=== PATIENT | male | born 1995 ===

== ENCOUNTER 2021-10-14 07:53 | Outpatient (CLI) | payer OTHER, SELFPAY ==
--- NOTE | 2021-10-21 12:50 | WPDHOMESLEEP ---
Sleep Study - Home Unattended Date of Study: 10/14/21 <Erin Suero, DO - Last Filed: 10/21/21 13:31> Ordering Provider: Manish Booker APRN <Erin Suero, DO - Last Filed: 10/21/21 13:31> Interpreting Provider: Erin Suero DO <Erin Suero, DO - Last Filed: 10/21/21 13:31> Home Sleep Study Type: Apnea Link Air <Erin Suero, DO - Last Filed: 10/21/21 13:31> Height: 1.65 m <Erin Suero DO - Last Filed: 10/21/21 13:31> Weight: 77.111 kg <Erin Suero DO - Last Filed: 10/21/21 13:31> Body Mass Index: 28.3 <Erin Suero DO - Last Filed: 10/21/21 13:31> Neck Circumference (inches): 16 <Erin Suero DO - Last Filed: 10/21/21 13:31> [place]: 14 <Erin Suero DO - Last Filed: 10/21/21 13:31> Reason for Sleep Study Snoring, witnessed apneas <Erin Suero, DO - Last Filed: 10/21/21 13:31> Sleep History The patient is a 26-year-old male with depression that had a home sleep test ordered by his automotive painter due to unrefreshing sleep and daytime hypersomnia. The patient occasionally awakens from sleep short of breath. He denies awakening at night with heartburn, belching or cough. He constantly snores loud enough that others complain. He frequently has trouble sleeping when he has a cold. He denies waking up gasping for air throughout the night. He frequently has breathing problems at night observed by others. He occasionally sweats excessively at night. He denies having heart palpitations or irregular heartbeats during the night. He frequently falls asleep during the day but never while driving. He denies sleep paralysis, cataplexy and hypnagogic / hypnopompic hallucinations. He occasionally has trouble at work due to sleepiness. He frequently has nightmares. He denies having thoughts racing through his mind. He frequently feels sad, depressed and anxious. He frequently has muscular tension. He occasionally notices parts of his body jerk. He frequently kicks throughout the night. He denies having crawling and aching feelings in his legs as well as leg pain during the night. He constantly grinds his teeth during sleep but denies awakening with morning jaw pain. He is constantly bothered by pain during the day but denies being awakened by pain during the night. He constantly wakes up feeling stiff in the morning with sore and achy muscles. He goes to bed at 9:00 p.m. on weekdays and 10:00 p.m. on the weekends. He can fall asleep within a few minutes. He wakes up frequently throughout the night. When he awakens, he will toss and turn. He can fall back asleep within a few seconds. He awakens at 6:00 a.m. on weekdays and between 7 and 8:00 a.m. on the weekends. He typically gets 8 hours of sleep per night. He states that he will not go out and do activities because he is too tired. His hypersomnia has affected his sex life negatively. He currently lives with his and 3 kids. He does not consume any caffeinated beverages within 2 hours of bedtime. He does not engage in physical exercise before bedtime. He will watch television before falling asleep. He does not take naps in the afternoon or the evening. He drinks 2 cups of coffee in the morning. He denies tobacco, alcohol and recreational drug use. <Erin Suero, - Last Filed: 10/21/21 13:31> [facility] Past Medical History Medical History: Medical History Depression <Erin Suero DO - Last Filed: 10/21/21 13:31> Surgical History Surgical History: Surgical History H/O wisdom tooth extraction <Erin Suero DO - Last Filed: 10/21/21 13:31> Social History Social History: Social History Smoking status: Never smoker <Federica
[2021-10-21 13:00] VITALS: BMI 28.3
== END 2021-10-15 14:25 | disposition home or self-care (01) ==
LOC: ANHCSM 07:53
PROVIDERS: Visit Provider Nurse Practitioner Family
DX: G47.33 Obstructive sleep apnea (adult) (pediatric) (principal)
CPT/HCPCS: 95806

== ENCOUNTER 2021-12-13 08:19 | Outpatient (CLI) | payer OTHER, SELFPAY ==
--- NOTE | 2021-12-23 16:34 | WPDSLEEPSTUD ---
Sleep Study Date of Study: 12/13/21 Ordering Provider: Manish Booker APRN Interpreting Physician: Erin Suero DO Sleep Study Type: Polysomnogram Height: 1.65 m Weight: 77.252 kg Body Mass Index: 28.3 Neck Circumference (inches): 15 [place]: 9 Reason for Sleep Study The patient had a home sleep test that showed an AHI of 2.5. An in-lab study was ordered for further evaluation. 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 The patient occasionally awakens from sleep short of breath. He denies awakening at night with heartburn, belching or cough. He constantly snores loud enough that others complain. He frequently has trouble sleeping when he has a cold. He denies waking up gasping for air throughout the night. He frequently has breathing problems at night observed by others. He occasionally sweats excessively at night. He denies having heart palpitations or irregular heartbeats during the night. He frequently falls asleep during the day but never while driving. He denies sleep paralysis, cataplexy and hypnagogic / hypnopompic hallucinations. He occasionally has trouble at work due to sleepiness. He frequently has nightmares. He denies having thoughts racing through his mind. He frequently feels sad, depressed and anxious. He frequently has muscular tension. He occasionally notices parts of his body jerk. He frequently kicks throughout the night. He denies having crawling and aching feelings in his legs as well as leg pain during the night. He constantly grinds his teeth during sleep but denies awakening with morning jaw pain. He is constantly bothered by pain during the day but denies being awakened by pain during the night. He constantly wakes up feeling stiff in the morning with sore and achy muscles. He goes to bed at 9:00 p.m. on weekdays and 10:00 p.m. on the weekends. He can fall asleep within a few minutes. He wakes up frequently throughout the night. When he awakens, he will toss and turn. He can fall back asleep within a few seconds. He awakens at 6:00 a.m. on weekdays and between 7 and 8:00 a.m. on the weekends. He typically gets 8 hours of sleep per night. He states that he will not go out and do activities because he is too tired. His hypersomnia has affected his sex life negatively. He currently lives with his and 3 kids. He does not consume any caffeinated beverages within 2 hours of bedtime. He does not engage in physical exercise before bedtime. He will watch television before falling asleep. He does not take naps in the afternoon or the evening. He drinks 2 cups of coffee in the morning. He denies tobacco, alcohol and recreational drug use. PMFSH Past Medical History Medical History Depression Surgical History Surgical History H/O wisdom tooth extraction Social History Social History Smoking status: Never smoker Medications Home Medications Medication Instructions Recorded Confirmed Type eszopiclone 3 mg tablet 3 mg PO ONCE #1 tablet 10/28/21 Rx Sleep Procedure This test was performed using the [employer] multiple channel system including EOG, EEG, submental EMG, EKG, nasal and oral airflow using thermistors and nasal pressure sensors, chest and abdominal belts for body position data, and pulse oximetry. Video monitoring was also performed. The study was scored using [facility] guidelines. Sleep Architecture The patient had a total recording time of 478.9 minutes and total sleep time of 444.5 minutes. The sleep efficiency was 92.8%. Sleep latency was 3.3 minutes and REM latency was 237 minutes. The patient had 24 awakenings. The patient spent 57.5 minutes, 12.9% of total sleep time is s
[2021-12-23 16:39] VITALS: BMI 28.3
== END 2021-12-14 06:25 | disposition home or self-care (01) ==
PROVIDERS: Visit Provider Nurse Practitioner Family
DX: R06.83 Snoring (principal); R53.83 Other fatigue; G47.9 Sleep disorder, unspecified; F32.A Depression, unspecified
CPT/HCPCS: 95810